=== PATIENT | male | born 2000 ===

== ENCOUNTER 2021-01-20 05:59 | Emergency (ER) | payer MEDICAID, SELFPAY ==
--- NOTE | 2021-01-20 06:49 | XRay Report ---
CHEST 2 VIEWS INDICATION / CLINICAL INFORMATION: Sob 7DAYS. FINDINGS: SUPPORT DEVICES: None. HEART / MEDIASTINUM: No significant abnormality. LUNGS / PLEURA: Multifocal airspace pneumonia throughout the mid and lower lungs. Signer Name: Du Live MD Signed: 01/20/2021 6:44 AM Workstation Name: [id number]
[2021-01-20 10:20] LABS: Alanine Aminotransferase 136 units/L (7-56); Albumin 4.4 g/dL (3.9-5); BUN/Creatinine Ratio 11; Blood Urea Nitrogen 10 mg/dL (9-20); Calcium 9.3 mg/dL (8.4-10.2); Hemolysis Index 8
[2021-01-20 11:02] LABS: Basophils % (Auto) 0.2 % (0.0-1.8); Hematocrit 45.3 % (35.5-45.6); Hemoglobin 15.3 gm/dl (11.8-15.2); Lymphocytes # (Auto) 1.3 K/mm3 (1.2-5.4); Lymphocytes % (Auto) 22.3 % (13.4-35.0); Mean Corpuscular HGB Conc 34 % (32-34); Mean Corpuscular Volume 82 fl (84-94); Monocytes # (Auto) 0.4 K/mm3 (0.0-0.8); Monocytes % (Auto) 6.3 % (0.0-7.3); Platelet Count 162 K/mm3 (140-440); Red Blood Count 5.55 M/mm3 (3.65-5.03); Red Cell Distribution Width 14.5 % (13.2-15.2)
[2021-01-20] MEDS ORDERED: SODIUM CHLORIDE 0.9% 1000 ML 1,000 ML IV ONE ×2 (12:51→14:25)
--- NOTE | 2021-01-20 13:05 | Emergency Department Report ---
ED General Adult HPI - General Chief complaint: Upper Respiratory Infection Stated complaint: SOB PAIN ON UPPER BODY Time Seen by Provider: 01/20/21 12:38 Source: patient Mode of arrival: Ambulatory Limitations: No Limitations - History of Present Illness Initial comments: 20-year-old male patient without past medical history presents with complaints of cough and shortness of breath x2 days. He reports he did have contact with someone with COVID-19 and he is currently waiting his test results. He admits to changes in his taste and smell. Patient denies any nausea/vomiting/diarrhea, fever, chest pain, leg pain/swelling, or hemoptysis. - Related Data Previous Rx's Medication Instructions Recorded Last Taken Type Amoxicillin/Potassium Clav 1 each PO BID 10 Days #20 tablet 01/20/21 Unknown Rx [Augmentin 875-125 Tablet] Azithromycin [Zithromax Z-ROME] 0 mg PO DAILY 5 Days #6 tab 01/20/21 Unknown Rx guaiFENesin ER [Mucinex ER] 1,200 mg PO Q12H PRN #30 tablet.er 01/20/21 Unknown Rx predniSONE [Deltasone] 20 mg PO BID 4 Days #8 tab 01/20/21 Unknown Rx Allergies Allergy/AdvReac Type Severity Reaction Status Date / Time No Known Allergies Allergy Unverified 01/20/21 06:17 ED Review of Systems ROS: Stated complaint: SOB PAIN ON UPPER BODY Other details as noted in HPI Constitutional: denies: chills, diaphoresis, fever, malaise, weakness Respiratory: cough, shortness of breath Cardiovascular: denies: chest pain Gastrointestinal: denies: abdominal pain, nausea, vomiting, diarrhea Skin: denies: change in color ED Past Medical Hx - Past Medical History Previous Medical History?: No - Surgical History Past Surgical History?: No - Medications Home Medications: Home Medications Medication Instructions Recorded Confirmed Last Taken Type Amoxicillin/Potassium Clav 1 each PO BID 10 Days #20 tablet 01/20/21 Unknown Rx [Augmentin 875-125 Tablet] Azithromycin [Zithromax Z-ROME] 0 mg PO DAILY 5 Days #6 tab 01/20/21 Unknown Rx guaiFENesin ER [Mucinex ER] 1,200 mg PO Q12H PRN #30 tablet.er 01/20/21 Unknown Rx predniSONE [Deltasone] 20 mg PO BID 4 Days #8 tab 01/20/21 Unknown Rx ED Physical Exam - General Limitations: No Limitations General appearance: alert, in no apparent distress - Head Head exam: Present: atraumatic, normocephalic - Eye Eye exam: Present: normal appearance - ENT ENT exam: Present: normal exam - Neck Neck exam: Present: normal inspection - Respiratory Respiratory exam: Present: normal lung sounds bilaterally. Absent: respiratory distress - Cardiovascular Cardiovascular Exam: Present: normal rhythm, tachycardia. Absent: systolic murmur, diastolic murmur, rubs, gallop - Extremities Exam Extremities exam: Absent: calf tenderness (No swelling or pain noted to legs bilaterally) - Neurological Exam Neurological exam: Present: alert, oriented X3, normal gait - Psychiatric Psychiatric exam: Present: normal affect, normal mood ED Course Vital Signs 01/20/21 06:20 Temperature 98.8 F Pulse Rate 116 H Respiratory 18 Rate Blood Pressure 148/85 O2 Sat by Pulse 94 Oximetry ED Medical Decision Making - Lab Data Result diagrams: 01/20/21 09:26 01/20/21 09:26 Lab Results 01/20/21 01/20/21 Range/Units 09:26 09:26 WBC 5.7 (4.5-11.0) K/mm3 RBC 5.55 H (3.65-5.03) M/mm3 Hgb 15.3 H (11.8-15.2) gm/dl Hct 45.3 (35.5-45.6) % MCV 82 L (84-94) fl MCH 28 (28-32) pg MCHC 34 (32-34) % RDW 14.5 (13.2-15.2) % Plt Count 162 (140-440) K/mm3 Lymph % (Auto) 22.3 (13.4-35.0) % [place] % (Auto) 6.3 (0.0-7.3) % Eos % (Auto) 0.0 (0.0-4.3) % Baso % (Auto) 0.2 (0.0-1.8) % Lymph # (Auto) 1.3 (1.2-5.4) K/mm3 [place] # (Auto) 0.4 (0.0-0.8) K/mm3 Eos # (Auto) 0.0 (0.0-0.4) K/mm3 Baso # (Auto) 0.0 (0.0-0.1) K/mm3 Seg Neutrophils % 71.2 H (40.0-70.0) % Seg Neutrophils # 4.0 (1.8-7.7) K/mm3 Sodium 138 (137-145) mmol/L Potassium 4.1 (3.6-5.0) mmol/L Chloride 100.5 (98-107) mmol/L Carbon Dioxide 26 (22-30) mmol/L Anion Gap 16 mmol/L BUN 10 (9-20) mg/dL Creatinine 0.9 (0.8-1.3) mg/dL Estimated GFR > 60 ml/min BUN/Creatinine Ratio 11 % Glucose 99 (75-100) mg/dL Calcium 9.3 (8.4-10.2) mg/dL Total Bilirubin 0.50 (0.1-1.2) mg/dL AST 81 H (5-40) units/L ALT 136 H (7-56) units/L Alkaline Phosphatase 77 (35-129) units/L Total Protein 7.7 (6.3-8.2) g/dL Albumin 4.4 (3.9-5) g/dL Albumin/Globulin Ratio 1.3 % - Radiology Data Radiology results: report reviewed CHEST 2 VIEWS INDICATION / CLINICAL INFORMATION: Sob 7DAYS. FINDINGS: SUPPORT DEVICES: None. HEART / MEDIASTINUM: No significant abnormality. LUNGS / PLEURA: Multifocal airspace pneumonia throughout the mid and lower lungs. CTA CHEST WITH CONTRAST INDICATION / CLINICAL INFORMATION: +covid, tachy, pneumonia OMNI 350 100ML . TECHNIQUE: Axial CT images were obtained through the chest after injection of 100 mL's of Omnipaque 350 IV contrast. 3 plane MIP and/or 3D reconstructions were produced. All CT scans at this location are performed using CT dose reduction for ALARA by means of automated exposure control. COMPARISON: Chest radiograph from earlier in the day FINDINGS: PULMONARY ARTERIES: No central pulmonary embolism. Opacification pulmonary arteries at the segmental level is nondiagnostic. THORACIC AORTA: No significant abnormality. HEART: No significant abnormality. CORONARY ARTERY CALCIFICATION: None. MEDIASTINUM / JERI: No significant abnormality. PLEURA: No pleural effusion. No pneumothorax. LUNGS: There is scattered groundglass opacities within all lobes. ADDITIONAL FINDINGS: None. UPPER ABDOMEN: Hepatic steatosis. SKELETAL STRUCTURES: No significant osseous abnormality. IMPRESSION: 1. No CT evidence for central pulmonary embolism. Inadequate opacification of the segmental and subsegmental arteries. 2. Scattered groundglass opacities within all lobes which can be seen with Covid pneumonia. 3. Hepatic steatosis. - Medical Decision Making 20-year-old male patient without past medical history presents with complaints of cough and shortness of breath x2 days. He reports he did have contact with someone with COVID-19 and he is currently waiting his test results. He admits to changes in his taste and smell. Patient denies any nausea/vomiting/diarrhea, fever, chest pain, leg pain/swelling, or hemoptysis. Chest x-ray shows bilateral pneumonia. This is likely due to Covid given patient's history. Patient ambulated by this provider and oxygen remained 95% to 100% on room air. Heart rate noted to remain 115-120. Patient given 2 L of normal saline. Discussed patient in detail with Dr. Bond. Given continued tachycardia with heart rate of 110, recommend CTA of chest to rule out PE. CTA chest is negative for PE. Heart rate now noted to be 102. He is well-appearing a nd his lungs are clear on exam. Patient is stable for discharge home. Discussed presumptive diagnosis and importance of self quarantine, plan of care, and signs and symptoms that should prompt immediate return to emergency department in detail with patient verbalized understanding. Patient also to follow-up with his primary care doctor in 1 to 2 weeks for repeat of his liver enzymes Critical care attestation.: If time is entered above; I have spent that time in minutes in the direct care of this critically ill patient, excluding procedure time. ED Disposition Clinical Impression: Community acquired pneumonia, Liver function study, abnormal, Person under investigation for COVID-19 Disposition: 01 HOME / SELF CARE / HOMELESS Is pt being admited?: No Condition: Stable Instructions: COVID-19, Community-Acquired Pneumonia, Adult, Prevent the Spread of COVID-19 if You Are Sick - CDC, Bacterial Pneumonia (ED) Prescriptions: Amoxicillin/Potassium Clav [Augmentin 875-125 Tablet] 1 each PO BID 10 Days #20 tablet predniSONE [Deltasone] 20 mg PO BID 4 Days #8 tab guaiFENesin ER [Mucinex ER] 1,200 mg PO Q12H PRN #30 tablet.er PRN Reason: cough/congestion Azithromycin [Zithromax Z-ROME] 0 mg PO DAILY 5 Days #6 tab Referrals: [facility] [Provider Group] - 3-5 Days PRIMARY CARE,MD [Primary Care Provider] - 3-5 Days (Liver function test repeat) Forms: Work/School Release Form(ED)
[2021-01-20] MEDS ORDERED: dexAMETHasone 20 MG/5 ML VIAL IV ONE (14:25)
--- NOTE | 2021-01-20 16:31 | Cat Scan Report ---
CTA CHEST WITH CONTRAST INDICATION / CLINICAL INFORMATION: +covid, tachy, pneumonia OMNI 350 100ML . TECHNIQUE: Axial CT images were obtained through the chest after injection of 100 mL's of Omnipaque 3 50 IV contrast. 3 plane MIP and/or 3D reconstructions were produced. All CT scans at this location ar e performed using CT dose reduction for ALARA by means of automated exposure control. COMPARISON: Chest radiograph from earlier in the day FINDINGS: PULMONARY ARTERIES: No central pulmonary embolism. Opacification pulmonary arteries at the segmental level is nondiagnostic. THORACIC AORTA: No significant abnormality. HEART: No significant abnormality. CORONARY ARTERY CALCIFICATION: None. MEDIASTINUM / JERI: No significant abnormality. PLEURA: No pleural effusion. No pneumothorax. LUNGS: There is scattered groundglass opacities within all lobes. ADDITIONAL FINDINGS: None. UPPER ABDOMEN: Hepatic steatosis. SKELETAL STRUCTURES: No significant osseous abnormality. IMPRESSION: 1. No CT evidence for central pulmonary embolism. Inadequate opacification of the segmental and subse gmental arteries. 2. Scattered groundglass opacities within all lobes which can be seen with Covid pneumonia. 3. Hepatic steatosis. Signer Name: Matty Velasco DO Signed: 01/20/2021 4:27 PM Workstation Name: [id number]
[2021-01-20 17:12] VITALS: BP 152/89
== END 2021-01-20 17:18 | disposition home or self-care (01) ==
LOC: ED 05:59
DX: J18.8 Other pneumonia, unspecified organism (principal); Z20.822 Contact with and (suspected) exposure to COVID-19; R94.5 Abnormal results of liver function studies; Z79.899 Other long term (current) drug therapy
CPT/HCPCS: 36415; 71046; 71275; 80053; 85025; 96361; 96374; 99284; J1100; J7030; Q9967